=== PATIENT | male | born 1945 | race African-American/Black ===

== ENCOUNTER 2016-12-02 21:29 | Inpatient (IN) | payer OTHER, MEDICARE ==
[~2016-12-02] VITALS: Ht 193 cm; Wt 92.4 kg
[~2016-12-02 21:29] MED LIST: AMLO10 PO; LEVA250T PO; Z.0.UNKNOWN
[2016-12-02 21:38] VITALS: BP 158/77; PULSE 74; RESP 16; TEMP 98.6; O2SAT 97
[2016-12-02] MEDS ORDERED: SODIUM CHLOR 0.9% 1000 ML INJ 1,000 ML IV ONE (21:40)
[2016-12-02] MEDS ORDERED: SODIUM CHLORIDE 0.9% FLUSH 10 ML FLUSH IVF PRN (21:45)
[2016-12-02 21:46] VITALS: BP 158/77; PULSE 74; RESP 18; O2SAT 97
[2016-12-02] MEDS ORDERED: AMLO10TA2 PO (21:46)
[2016-12-02] MEDS ORDERED: TAMS0.4C4 PO (21:46)
--- NOTE | 2016-12-02 21:50 | PD ---
HPI Chief Complaint: ams Time Seen by Provider: 21:50 Travel History International Travel<30 days: No Contact w/Intl Traveler<30days: No Traveled to known affect area: No History of Present Illness HPI 71-year-old male presents to the emergency department by EMS transport from home after roommate reportedly witnessed possible seizure activity around 6:30 PM. Patient reportedly had been napping. EMS was called and upon their arrival patient was combative and agitated possibly postictal. During transit patient's mentation slowly continued to improve. No prior history of seizure disorder. Patient here denies previous seizure disorder or recent injury. Patient has no headache. Patient has history of frequent alcohol use without any alcohol use for the past 2 days. Patient denies previous alcohol withdrawal. Patient denies other complaints other than low back pain which has been present for 3-4 months and is not new. No report of headache visual disturbance difficulty speaking difficulty swallowing weakness of the upper extremities or lower extremities chest pain palpitations shortness of breath abdominal pain nausea vomiting diarrhea or fever. History of hypertension. Blood sugar per paramedics 97. PFSH Past Medical History Narrative Medical Hypertension, prostate surgery, daily alcohol use; nursing notes reviewed Autoimmune Disease: No Blood Disorders: No Cancer: No Cardiovascular Problems: Yes Chemotherapy: No Diminished Hearing: No Endocrine: No Genitourinary: Yes Hypertension: Yes Kidney Stones: No Musculoskeletal: No Neurologic: No Psychiatric: No Reproductive: No Respiratory: No Radiation Therapy: No Renal Failure: No Past Surgical History Abdominal Surgery: No AICD: No Cardiac Surgery: No Ear Surgery: No Endocrine Surgery: No Eye Surgery: No Genitourinary Surgery: Yes Gynecologic Surgery: No Oral Surgery: No Pacemaker: No Thoracic Surgery: No Other Surgery: Yes (PROSTATE) Social History Alcohol Use: Yes (DAILY-BEER) Tobacco Use: No Substance Use: No Allergies-Medications (Allergen,Severity, Reaction): Coded Allergies: No Known Allergies (Verified , 12/02/16) Reported Meds & Prescriptions Reported Meds & Active Scripts Active Reported Tamsulosin (Tamsulosin HCl) 0.4 Mg Cap 0.4 Mg PO HS Amlodipine (Amlodipine Besylate) 10 Mg Tab 10 Mg PO DAILY Review of Systems Except as stated in HPI: all other systems reviewed are Neg General / Constitutional: No: Fever Eyes: No: Visual changes HENT: No: Headaches, Neck Pain Cardiovascular: No: Chest Pain or Discomfort Respiratory: No: Shortness of Breath Gastrointestinal: No: Vomiting, Abdominal Pain Genitourinary: No: Flank Pain Musculoskeletal: Positive: Pain, No: Myalgias, Arthralgias Skin: No Rash Neurologic: Positive: Syncope (possible), Seizures (possible), No: Weakness, Dizziness, Focal Abnormalities, Coordination Problem, Headache Psychiatric: No: Anxiety Hematologic/Lymphatic: No: Lymph Node Enlargement Physical Exam Narrative GENERAL: Well-developed well-nourished male in no acute distress no respiratory distress; GCS 14 SKIN: Warm and dry. HEAD: Atraumatic. Normocephalic. EYES: Pupils equal and round. No scleral icterus. No injection or drainage. ENT: No nasal bleeding or discharge. Mucous membranes pink and moist. NECK: Trachea midline. No JVD. CARDIOVASCULAR: Regular rate and rhythm. RESPIRATORY: No accessory muscle use. Clear to auscultation. Breath sounds equal bilaterally. GASTROINTESTINAL: Abdomen soft, non-tender, nondistended. Hepatic and splenic margins not palpable. MUSCULOSKELETAL: Extremities without clubbing, cyanosis, or edema. No obvious deformities. NEUROLOGICAL: Awake and alert. No obvious cranial nerve deficits. Motor grossly within normal limits. Five out of 5 muscle strength in the arms and legs. No limb ataxia. No pronator drift. Sensory exam grossly intact. Normal speech. PSYCHIATRIC: Appropriate mood and affect; insight and judgment normal. Data Data Last Documented VS Vital Signs Date Time Temp Pulse Resp B/P (MAP) Pulse Ox O2 Delivery O2 Flow Rate FiO2 12/02/16 21:46 74 18 158/77 (104) 97 Room Air 12/02/16 21:38 98.6 Orders Orders Complete Blood Count With Diff (12/02/16 21:40) Alcohol (Ethanol) (12/02/16 21:40) Drug Screen, Random Urine (12/02/16 21:40) Ct Brain W/O Iv Contrast(Rout) (12/02/16 ) Blood Glucose (12/02/16 21:40) Ecg Monitoring (12/02/16 21:40) Iv Access Insert/Monitor (12/02/16 21:40) Oximetry (12/02/16 21:40) Comprehensive Metabolic Panel (12/02/16 21:40) Sodium Chlor 0.9% 1000 Ml Inj (Ns 1000 M (12/02/16 21:40) Sodium Chloride 0.9% Flush (Ns Flush) (12/02/16 21:45) Magnesium (Mg) (12/02/16 21:40) Electrocardiogram (12/02/16 ) Troponin I (12/02/16 21:40) ^ Seizure Precautions (12/02/16 21:50) Admit Order (Ed Use Only) (12/03/16 ) ^ Saline Lock (12/03/16 00:59) Resp Oxygen Keron C Titrat 1-4 L (12/03/16 ) Notify Dr: Other (12/03/16 00:59) Sodium Chloride 0.9% Flush (Ns Flush) (12/03/16 09:00) Sodium Chloride 0.9% Flush (Ns Flush) (12/03/16 01:00) Admit To Inpatient (12/03/16 ) Vital Signs (Adult) Q4H (12/03/16 00:57) Neuro Checks Q4H (12/03/16 00:57) Activity Oob With Assistance (12/03/16 00:57) Valuation Consultant / Telemetry .CONTINUOUS (12/03/16 00:57) Diet Heart Healthy (12/03/16 Breakfast) Sodium Chloride 0.9% Flush (Ns Flush) (12/03/16 01:00) Sodium Chloride 0.9% Flush (Ns Flush) (12/03/16 09:00) Basic Metabolic Panel (Bmp) (12/04/16 06:00) Complete Blood Count With Diff (12/04/16 06:00) Pt Request For Service (12/03/16 00:57) Case Management Consult (12/03/16 00:57) Naloxone Inj (Narcan Inj) (12/03/16 01:00) Inpatient Certification (12/03/16 ) ^ Seizure Precautions (12/03/16 00:57) Lorazepam Inj (Ativan Inj) (12/03/16 01:00) Lorazepam Inj (Ativan Inj) (12/03/16 01:00) Eeg Study (12/03/16 ) Consult Neurology (12/03/16 ) Thiamine (Vit B1) (Vitamin B1) (12/03/16 09:00) Labs Laboratory Tests Test 12/02/16 22:00 White Blood Count 5.8 TH/MM3 Red Blood Count 4.90 MIL/MM3 Hemoglobin 12.2 GM/DL Hematocrit 38.2 % Mean Corpuscular Volume 77.9 FL Mean Corpuscular Hemoglobin 24.9 PG Mean Corpuscular Hemoglobin Concent 32.0 % Red Cell Distribution Width 14.7 % Platelet Count 169 TH/MM3 Mean Platelet Volume 7.1 FL Neutrophils (%) (Auto) 64.9 % Lymphocytes (%) (Auto) 25.3 % Monocytes (%) (Auto) 8.8 % Eosinophils (%) (Auto) 0.6 % Basophils (%) (Auto) 0.4 % Neutrophils # (Auto) 3.8 TH/MM3 Lymphocytes # (Auto) 1.5 TH/MM3 Monocytes # (Auto) 0.5 TH/MM3 Eosinophils # (Auto) 0.0 TH/MM3 Basophils # (Auto) 0.0 TH/MM3 CBC Comment DIFF FINAL Differential Comment Blood Urea Nitrogen 14 MG/DL Creatinine 1.32 MG/DL Random Glucose 86 MG/DL Total Protein 7.8 GM/DL Albumin 3.3 GM/DL Calcium Level 9.0 MG/DL Magnesium Level 2.1 MG/DL Alkaline Phosphatase 85 U/L Aspartate Amino Transf (AST/SGOT) 24 U/L Alanine Aminotransferase (ALT/SGPT) 19 U/L Total Bilirubin 0.5 MG/DL Sodium Level 136 MEQ/L Potassium Level 3.7 MEQ/L Chloride Level 103 MEQ/L Carbon Dioxide Level 20.4 MEQ/L Anion Gap 13 MEQ/L Estimat Glomerular Filtration Rate 65 ML/MIN Troponin I 0.02 NG/ML Ethyl Alcohol Level LESS THAN 3 MG/DL MDM Medical Decision Making Medical Screen Exam Complete: Yes Emergency Medical Condition: Yes Medical Record Reviewed: Yes Interpretation(s) EKG: Normal sinus rhythm rate 65 first grade AV block no acute ST elevation or injury pattern Differential Diagnosis Syncope, seizure, alcohol withdrawal seizure, TIA, CVA, ICH, elect light disturbance, arrhythmia, FL Narrative Course Patient placed on court recording monitor and pulse oximeter; specimens collected and sent for resulting; imaging studies ordered; seizure precautions CT imaging ordered Family members at bedside report sonorous respirations suspect postictal event witnessed seizure activity witnessed; GCS 15 at this time Plan will be to admit for new-onset seizure versus alcohol withdrawal seizure versus syncopal episode Patient's case discussed with on-call medicine physician for observation admission; no recurrent syncope or seizure while in rhe ED Physician Communication Physician Communication discussed with Dr Whitaker Diagnosis Primary Impression: Syncope Qualified Codes: R55 - Syncope and collapse Additional Impression: Alcohol withdrawal seizure Qualified Codes: F10.239 - Alcohol dependence with withdrawal, unspecified; R56.9 - Unspecified convulsions Admitting Information Admitting Physician Requests: Observation Scripts Cyanocobalamin (Vitamin B-12) 1,000 Mcg Subl 1000 MCG SL DAILY for Nutritional Supplement, #30 TAB.SL 0 Refills Prov: Henri Rossi MD 12/04/16 Thiamine HCl (Gnp Vitamin B-1) 100 Mg Tab 100 MG PO DAILY for alcohol, #30 TAB 0 Refills Prov: Henri Rossi MD 12/04/16 Zoe Mark MD Dec 02, 2016 21:50
[2016-12-02 22:20] LABS: AUTOMATED NEUTROPHIL # 3.8 TH/MM3 (1.8-7.7); BASOPHIL % 0.4 % (0.0-2.0); EOSINOPHIL % 0.6 % (0.0-4.0); HEMATOCRIT 38.2 % (39.0-51.0); HEMO FLAGS DIFF FINAL; LYMPH % 25.3 % (9.0-44.0); LYMPHOCYTE # 1.5 TH/MM3 (1.0-4.8); MEAN CELL VOLUME 77.9 FL (80.0-100.0); MEAN CORPUSCULAR HEMOGLOBIN 24.9 PG (27.0-34.0); MONO % 8.8 % (0.0-8.0); NEUT % 64.9 % (16.0-70.0); PLATELET COUNT 169 TH/MM3 (150-450); RED CELL DISTRIBUTION WIDTH 14.7 % (11.6-17.2); WHITE BLOOD COUNT 5.8 TH/MM3 (4.0-11.0)
[2016-12-02 22:31] LABS: ANION GAP 13 MEQ/L (5-15); AST (GOT) 24 U/L (15-37); BICARBONATE 20.4 MEQ/L (21.0-32.0); BLOOD UREA NITROGEN 14 MG/DL (7-18); CHLORIDE 103 MEQ/L (98-107); GLOMERULAR FILTRATION RATE 65 ML/MIN (>89); MAGNESIUM 2.1 MG/DL (1.5-2.5); POTASSIUM 3.7 MEQ/L (3.5-5.1); SODIUM (NA) 136 MEQ/L (136-145)
[2016-12-02 22:32] LABS: ALT (GPT) 19 U/L (12-78)
[2016-12-02 22:36] LABS: ALKALINE PHOSPHATASE 85 U/L (45-117); TOTAL BILIRUBIN ADULT 0.5 MG/DL (0.2-1.0)
[2016-12-02 22:42] LABS: ALCOHOL LESS THAN 3 MG/DL (0-5)
--- NOTE | 2016-12-02 23:37 | RADRPT ---
EXAM DATE/TIME: 12/02/2016 23:10 [facility] COMPARISON: No previous studies available for comparison. INDICATIONS : Altered mental status. RADIATION DOSE: 35.98 CTDIvol (mGy) MEDICAL HISTORY : Cardiovascular disease. Hypertension. SURGICAL HISTORY : None. ENCOUNTER: Initial ACUITY: 1 day PAIN SCALE: 0/10 LOCATION: cranial TECHNIQUE: Multiple contiguous axial images were obtained of the head. Using automated exposure control and adj ustment of the mA and/or kV according to patient size, radiation dose was kept as low as reasonably a chievable to obtain optimal diagnostic quality images. DICOM format image data is available electro nically for review and comparison. FINDINGS: CEREBRUM: The ventricles are normal for age. No evidence of midline shift, mass lesion, hemorrhage or acute in farction. No extra-axial fluid collections are seen. POSTERIOR FOSSA: The cerebellum and brainstem are intact. The 4th ventricle is midline. The cerebellopontine angle i s unremarkable. EXTRACRANIAL: The visualized portion of the orbits is intact. SKULL: The calvaria is intact. No evidence of skull fracture. CONCLUSION: Normal examination. Oscar Contreras MD on December 02, 2016 at 23:34 Board Certified Radiologist. This report was verified electronically.
[2016-12-03] VITALS (11 sets, daily range): BP systolic 143–165; BP diastolic 67–79; PULSE 43–52; RESP 20; TEMP 97–98.7; O2SAT 96–100
[2016-12-03] MEDS ORDERED: SODIUM CHLORIDE 0.9% FLUSH 10 ML FLUSH IVF PRN (01:00)
[2016-12-03] MEDS ORDERED: NALOXONE HCL 0.4 MG/ML AMP IV PUSH PRN (01:00)
[2016-12-03] MEDS ORDERED: SODIUM CHLORIDE 0.9% FLUSH 10 ML FLUSH IV FLUSH PRN (01:00)
[2016-12-03] MEDS ORDERED: LORazepam 2 MG/ML VIAL IV PUSH PRN ×6 (01:00→09:30)
--- NOTE | 2016-12-03 01:25 | HHI.HP ---
[facility] No Primary Care Physician Admission Diagnosis seizure; alcohol withdrawal Diagnoses: Travel History International Travel<30 Days: No Contact w/Intl Traveler <30 Da: No Traveled to Known Affected Are: No History of Present Illness went to bed between 6p,m and 7p.m. nothing particular he remebers before sleeping friend in living room came to see him and he was confused, combative , so called 911 does not remember anything except 6 plp there and scared him no tongue bite no incontinence no prior episodes of syncope or seizures denies every other symptoms such as chest pain/ palpitations/ shortness of breath/ dizziness denies blood in stool or urine denies cough/ fever/ nausea/ vomiting/ diarrhea Review of Systems Except as stated in HPI: all other systems reviewed are Neg Past Family Social History Past Medical History Hypertension BPH Past Surgical History TURP some kind of surgery for gallbladder Reported Medications does not remember meds, pharmacy is [facility] Allergies: Coded Allergies: No Known Allergies (Verified , 12/02/16) Family History does not know for sure Social History Denies smoking cigarettes. Used to drink alcohol, about half a pint a day on a daily basis but this was before he turned 64 yo, about 7 yrs ago. now drinks about only 4 beers a day. Denies any drug abuse. Lives alone, and has this lady friend who lives with him on and off for several years Still drives. Physical Exam Vital Signs Vital Signs Date Time Temp Pulse Resp B/P (MAP) Pulse Ox O2 Delivery O2 Flow Rate FiO2 12/02/16 21:46 74 18 158/77 (104) 97 Room Air 12/02/16 21:38 98.6 74 16 158/77 (104) 97 Physical Exam GENERAL: This is a well-nourished, well-developed patient, in no apparent distress. SKIN: No rashes, ecchymoses or lesions. Cool and dry. HEAD: Atraumatic. Normocephalic. No temporal or scalp tenderness. EYES: No scleral icterus. No injection or drainage. ENT: Nose without bleeding, purulent drainage or septal hematoma. Airway patent. NECK: Trachea midline. No JVD CARDIOVASCULAR: Regular rate and rhythm without murmurs, gallops, or rubs. RESPIRATORY: Clear to auscultation. Breath sounds equal bilaterally. No wheezes , rales, or rhonchi. GASTROINTESTINAL: Abdomen soft, non-tender, nondistended. No guarding. MUSCULOSKELETAL: Extremities without clubbing, cyanosis, or edema. No calf tenderness. NEUROLOGICAL: Awake and alert. Motor and sensory grossly within normal limits. Normal speech. Laboratory Laboratory Tests Test 12/02/16 22:00 White Blood Count 5.8 Red Blood Count 4.90 Hemoglobin 12.2 Hematocrit 38.2 Mean Corpuscular Volume 77.9 Mean Corpuscular Hemoglobin 24.9 Mean Corpuscular Hemoglobin Concent 32.0 Red Cell Distribution Width 14.7 Platelet Count 169 Mean Platelet Volume 7.1 Neutrophils (%) (Auto) 64.9 Lymphocytes (%) (Auto) 25.3 Monocytes (%) (Auto) 8.8 Eosinophils (%) (Auto) 0.6 Basophils (%) (Auto) 0.4 Neutrophils # (Auto) 3.8 Lymphocytes # (Auto) 1.5 Monocytes # (Auto) 0.5 Eosinophils # (Auto) 0.0 Basophils # (Auto) 0.0 CBC Comment DIFF FINAL Differential Comment Blood Urea Nitrogen 14 Creatinine 1.32 Random Glucose 86 Total Protein 7.8 Albumin 3.3 Calcium Level 9.0 Magnesium Level 2.1 Alkaline Phosphatase 85 Aspartate Amino Transf (AST/SGOT) 24 Alanine Aminotransferase (ALT/SGPT) 19 Total Bilirubin 0.5 Sodium Level 136 Potassium Level 3.7 Chloride Level 103 Carbon Dioxide Level 20.4 Anion Gap 13 Estimat Glomerular Filtration Rate 65 Troponin I 0.02 Ethyl Alcohol Level LESS THAN 3 Result Diagram: 12/02/16219912/02/162199 Imaging Last 48 hours Impressions Carotid Artery Ultrasound 12/03/16 0000 Signed Impressions: Service Date/Time: Saturday, December 03, 2016 08:34 - CONCLUSION: [id number] atherosclerotic plaque in both carotid bifurcations. No evidence of hemodynamically significant stenosis. Antegrade flow both vertebral arteries. Felix Moore MD Head CT 12/02/16 0000 Signed Impressions: Service Date/Time: Friday, December 02, 2016 23:10 - CONCLUSION: Normal examination. MD Maximino Roberson VTE Risk Assessment Caprini VTE Risk Assessment: Mod/High Risk (score >= 2) Caprini Risk Assessment Model Point Value = 1 Point Value = 2 Point Value = 3 Point Value = 5 Age 41-60 Minor surgery BMI > 25 kg/m2 Swollen legs Varicose veins or History of unexplained or recurrent spontaneous Oral contraceptives or hormone replacement Sepsis (< 1 month) Serious lung disease, including pneumonia (< 1 month) Abnormal pulmonary function Acute myocardial infarction Congestive heart failure (< 1 month) History of inflammatory bowel disease Medical patient at bed rest Age 61-74 Arthroscopic surgery Major open surgery (> 45 min) Laparoscopic surgery (> 45 min) Malignancy Confined to bed (> 72 hours) Immobilizing plaster cast Central venous access Age >= 75 History of VTE Family history of VTE Factor V Leiden Prothrombin [id number] Lupus anticoagulant Anticardiolipin antibodies Elevated serum homocysteine Heparin-induced thrombocytopenia Other congenital or acquired thrombophilia Stroke (< 1 month) Elective arthroplasty Hip, pelvis, or leg fracture Acute spinal cord injury (< 1 month) Prophylaxis Regimen Total Risk Factor Score Risk Level Prophylaxis Regimen 0-1 Low Early ambulation 2 Moderate Order ONE of the following: *Sequential Compression Device (SCD) *Heparin 5000 units SQ BID 3-4 Higher Order ONE of the following medications: *Heparin 5000 units SQ TID *Enoxaparin/Lovenox 40 mg SQ daily (WT < 150 kg, CrCl > 30 mL/min) *Enoxaparin/Lovenox 30 mg SQ daily (WT < 150 kg, CrCl > 10-29 mL/min) *Enoxaparin/Lovenox 30 mg SQ BID (WT < 150 kg, CrCl > 30 mL/min) AND/OR *Sequential Compression Device (SCD) 5 or more Highest Order ONE of the following medications: *Heparin 5000 units SQ TID (Preferred with Epidurals) *Enoxaparin/Lovenox 40 mg SQ daily (WT < 150 kg, CrCl > 30 mL/min) *Enoxaparin/Lovenox 30 mg SQ daily (WT < 150 kg, CrCl > 10-29 mL/min) *Enoxaparin/Lovenox 30 mg SQ BID (WT < 150 kg, CrCl > 30 mL/min) AND *Sequential Compression Device (SCD) Assessment and Plan Assessment and Plan Impression: etoh withdrawal seizures - though he drinks only 4 beers a day, given his age, likely- plus last drink was on friday possible syncope htn BPH Plan: seizure precautions ativan prn for seizures ativan prn for withdrawal symptoms eeg echo carotid neuro eval resume home meds thiamine DVT prophylaxis with lovenox GI prophylaxis on pantoprazole Discussed Condition With patient, ER MD, nursing staff Physician Certification 2 Midnight Certification Type: Admission for Inpatient Services Order for Inpatient Services The services are ordered in accordance with Medicare regulations or non- Medicare payer requirements, as applicable. In the case of services not specified as inpatient-only, they are appropriately provided as inpatient services in accordance with the 2-midnight benchmark. Estimated LOS (days): 2 days is the estimated time the patient will need to remain in the hospital, assuming treatment plan goals are met and no additional complications. Post-Hospital Plan: Home Jeff Whitaker MD Dec 03, 2016 01:25
[2016-12-03] MEDS: ENALAPRILAT 2.5 MG/2 ML VIAL IV PUSH PRN ×2 (03:03→15:39)
[2016-12-03] MEDS: SODIUM CHLORIDE 0.9% FLUSH 10 ML FLUSH IV FLUSH SCH ×4 (08:29→23:15)
[2016-12-03] MEDS ORDERED: THIAMINE HCL 100 MG TAB PO SCH (09:00)
[2016-12-03] MEDS ORDERED: LORazepam 2 MG TAB PO PRN (09:30)
[2016-12-03] MEDS ORDERED: FLUMAZENIL 0.5 MG/5 ML VIAL IV PUSH PRN (09:30)
[2016-12-03] MEDS ORDERED: LORazepam 1 MG TAB PO PRN (09:30)
--- NOTE | 2016-12-03 10:05 | HHI.PR ---
Subjective Remarks This is a pleasant 71 y/o male who was just admitted through Emergency room due to probable Alcohol withdrawal Seizures at this time seen in his bedroom in the presence of nurse Miss Kenney, no new issues, patient stable continue present care [facility] protocol in chart and follow Electrolytes. he has Hypertension and BPH. Objective Vital Signs Date Time Temp Pulse Resp B/P (MAP) Pulse Ox O2 Delivery O2 Flow Rate FiO2 12/03/16 08:16 44 12/03/16 04:51 98.3 52 20 151/67 (95) 96 12/03/16 02:22 97.0 50 20 165/79 (107) 98 12/03/16 01:55 97 12/02/16 21:46 74 18 158/77 (104) 97 Room Air 12/02/16 21:38 98.6 74 16 158/77 (104) 97 I/O 12/02/16 12/02/16 12/02/16 12/03/16 12/03/16 12/03/16 07:00 15:00 23:00 07:00 15:00 23:00 Intake Total 416 ml Output Total 600 ml 325 ml Balance -184 ml -325 ml Intake IV Total 416 ml Output Urine Total 600 ml 325 ml Result Diagram: 12/02/16219912/02/16 220 Imaging Last Impressions Head CT 12/02/16 0000 Signed Impressions: Service Date/Time: Friday, December 02, 2016 23:10 - CONCLUSION: Normal examination. Oscar Contreras MD Procedures None Other Results Laboratory Tests Test 12/02/16 22:00 White Blood Count 5.8 TH/MM3 Red Blood Count 4.90 MIL/MM3 Hemoglobin 12.2 GM/DL Hematocrit 38.2 % Mean Corpuscular Volume 77.9 FL Mean Corpuscular Hemoglobin 24.9 PG Mean Corpuscular Hemoglobin Concent 32.0 % Red Cell Distribution Width 14.7 % Platelet Count 169 TH/MM3 Mean Platelet Volume 7.1 FL Neutrophils (%) (Auto) 64.9 % Lymphocytes (%) (Auto) 25.3 % Monocytes (%) (Auto) 8.8 % Eosinophils (%) (Auto) 0.6 % Basophils (%) (Auto) 0.4 % Neutrophils # (Auto) 3.8 TH/MM3 Lymphocytes # (Auto) 1.5 TH/MM3 Monocytes # (Auto) 0.5 TH/MM3 Eosinophils # (Auto) 0.0 TH/MM3 Basophils # (Auto) 0.0 TH/MM3 CBC Comment DIFF FINAL Differential Comment Blood Urea Nitrogen 14 MG/DL Creatinine 1.32 MG/DL Random Glucose 86 MG/DL Total Protein 7.8 GM/DL Albumin 3.3 GM/DL Calcium Level 9.0 MG/DL Magnesium Level 2.1 MG/DL Alkaline Phosphatase 85 U/L Aspartate Amino Transf (AST/SGOT) 24 U/L Alanine Aminotransferase (ALT/SGPT) 19 U/L Total Bilirubin 0.5 MG/DL Sodium Level 136 MEQ/L Potassium Level 3.7 MEQ/L Chloride Level 103 MEQ/L Carbon Dioxide Level 20.4 MEQ/L Anion Gap 13 MEQ/L Estimat Glomerular Filtration Rate 65 ML/MIN Troponin I 0.02 NG/ML Ethyl Alcohol Level LESS THAN 3 MG/DL Objective Remarks GENERAL: This is a well-nourished, well-developed patient, in no apparent distress. SKIN: No rashes, ecchymoses or lesions. Cool and dry. HEAD: Atraumatic. Normocephalic. No temporal or scalp tenderness. EYES: No scleral icterus. No injection or drainage. ENT: Nose without bleeding, purulent drainage or septal hematoma. Airway patent. NECK: Trachea midline. No JVD CARDIOVASCULAR: Regular rate and rhythm without murmurs, gallops, or rubs. RESPIRATORY: Clear to auscultation. Breath sounds equal bilaterally. No wheezes , rales, or rhonchi. GASTROINTESTINAL: Abdomen soft, non-tender, nondistended. No guarding. MUSCULOSKELETAL: Extremities without clubbing, cyanosis, or edema. No calf tenderness. NEUROLOGICAL: Awake and alert. Motor and sensory grossly within normal limits. Normal speech. Medications and IVs Current Medications Medications (Trade) Dose Ordered Sig/Cecilia Route Start Time Stop Time Status Last Admin (NS Flush) 2 ml UNSCH PRN IVF 12/02/16 21:45 12/02/16 22:05 (NS Flush) 2 ml BID IV FLUSH 12/03/16 09:00 12/03/16 08:29 (NS Flush) 2 ml UNSCH PRN IVF 12/03/16 01:00 (NS Flush) 2 ml UNSCH PRN IV FLUSH 12/03/16 01:00 (NS Flush) 2 ml BID IV FLUSH 12/03/16 09:00 (Narcan Inj) 0.4 mg UNSCH PRN IV PUSH 12/03/16 01:00 (Ativan Inj) 1 mg Q15M PRN IV PUSH 12/03/16 01:00 (Ativan Inj) 1 mg Q2H PRN IV PUSH 12/03/16 01:00 (Vitamin B1) 100 mg DAILY PO 12/03/16 09:00 12/03/16 08:31 (Vasotec Inj) 2.5 mg Q6H PRN IV PUSH 12/03/16 02:00 12/03/16 03:03 (Norvasc) 10 mg DAILY PO 12/03/16 09:00 12/03/16 08:29 (Flomax) 0.4 mg HS PO 12/03/16 21:00 Multivitamins 10 ml/Folic Acid 1 mg/Sodium Chloride 510.2 ml @ 125 mls/hr Q24H IV 12/03/16 12:00 12/08/16 11:59 Thiamine HCl 100 mg/Sodium Chloride 101 ml @ 100 mls/hr Q24H IV 12/03/16 09:30 12/06/16 09:29 UNV (Vitamin B1) 100 mg DAILY PO 12/07/16 09:00 UNV (Romazicon Inj) 0.2 mg Q1M PRN IV PUSH 12/03/16 09:30 (Ativan) 1 mg Q4H PRN PO 12/03/16 09:30 (Ativan Inj) 1 mg Q4H PRN IV PUSH 12/03/16 09:30 (Ativan) 2 mg Q2H PRN PO 12/03/16 09:30 (Ativan Inj) 2 mg Q2H PRN IV PUSH 12/03/16 09:30 (Ativan Inj) 2 mg Q1H PRN IV PUSH 12/03/16 09:30 (Ativan Inj) 2 mg Q15M PRN IV PUSH 12/03/16 09:30 A/P Assessment and Plan 1. Alcohol withdrawal Seizures, the patient states he had the same situation in the past continue CIWA protocol, Seizure precautions, Cardiac monitoring 2. Hypertension continue Home medicines 3. BPH continue home medicines. DVT prophylaxis Enoxaparin Gastric protection Famotidine Discharge Planning Expected by tomorrow AM if stable. Henri Rossi MD Dec 03, 2016 10:05
--- NOTE | 2016-12-03 10:10 | EKG ---
Date Performed: 12/02/2016 Time Performed: 22:39:01 PTAGE: 71 years EKG: Sinus rhythm WITH FIRST DEGREE AV BLOCK ABNORMAL ECG PREVIOUS TRACING : 09/15/2011 23.06 Compared to prior tracing no significant change DOCTOR: Sanya Foster Interpretating Date/Time 12/03/2016 10:07:32
--- NOTE | 2016-12-03 10:10 | RADRPT ---
EXAM DATE/TIME: 12/03/2016 08:34 [facility] COMPARISON: No previous studies available for comparison. INDICATIONS : Syncope. MEDICAL HISTORY : Hypertension. Seizures. UTI. Asthma. Cholelithiasis. SURGICAL HISTORY : Prostatectomy. ENCOUNTER: Initial ACUITY: 1 day PAIN SCORE: 03/05 LOCATION: Bilateral neck PEAK SYSTOLIC VELOCITIES (cm/sec): ICA/CCA RATIO: Right: 1.1 Left: 1.1 ICA: Right: 106 Left: 102 CCA: Right: 92 Left: 91 ECA: Right: 92 Left: 123 VERTEBRAL: Right: 54 antegrade Left: 95 antegrade Elevated flow velocities and ICA/CCA ratios have been found to correlate with increased degrees of vessel stenosis, calculated as percentage of diameter relative to a normal segment of distal ICA/CCA FINDINGS: Mild to moderate heterogeneous plaque identified in both carotid bifurcations extending into the inte rnal carotid arteries. There is no significant luminal compromise. RIGHT CAROTID: No significant stenosis is visualized. The waveforms are within normal limits. LEFT CAROTID: No significant stenosis is visualized. The waveforms are within normal limits. VERTEBRAL ARTERIES: Antegrade flow is seen in both vertebral arteries. MISCELLANEOUS: None. CONCLUSION: [id number] atherosclerotic plaque in both carotid bifurcations. No evidence of hemodynamically significant stenosis. Antegrade flow both vertebral arteries. Felix Moore MD on December 03, 2016 at 10:07 Board Certified Radiologist. This report was verified electronically.
[2016-12-03] MEDS: ENOXAPARIN SODIUM 40 MG/0.4 ML SYRINGE SQ SCH (10:59)
[2016-12-03] MEDS ORDERED: MULTIVITAMIN INJ 10 ML, FOLIC ACID INJ 1 MG in SODIUM CHLORID 0.9% 500 ML INJ 500 ML IV SCH (12:00)
[2016-12-03 12:40] LABS: HDL CHOLESTEROL 83.8 MG/DL (40.0-60.0)
[2016-12-03 12:43] LABS: BACTERIA, URINE OCC /hpf; BLOOD, URINE TRACE (NEG); COMMENT (UR) CULTURE INDICATED; CULTURE IF INDICATED CULTURE INDICATED; GLUCOSE,URINE NEG (NEG); KETONE, URINE NEG (NEG); NITRITE,URINE NEG (NEG); PH, URINE 6.5 (5.0-8.5); URINE COLOR LIGHT-YELLOW (YELLW/STRAW)
[2016-12-03] MEDS ORDERED: CYANOCOBALAMIN 1000 MCG/ML VIAL IM ONE (15:45)
--- NOTE | 2016-12-03 16:35 | MB ---
cc: EDWIGE YEAGER M.D. DATE OF CONSULTATION 12/03/16 DATE OF 1945 AGE 71 REASON FOR CONSULTATION New seizure, possible ethanol withdrawal. HISTORY OF PRESENT ILLNESS This is a 71-year-old man in his usual state of health when he woke up, went to bed and woke up with a bunch of people standing around him. He was told by a friend that he was making funny noises. was called. They came in. He was confused, combative, does not remember much. He states on average he has about 5 16 ounce light beers a day and a couple shots of anthony but he did not have anything to drink yesterday. There was no tongue biting. No incontinence. He has never had any such event in the past. PAST MEDICAL HISTORY He has a past medical history of BPH, hypertension, TURP, gallbladder surgery. MEDICATIONS home medications he does not have a list of. ALLERGIES NONE REPORTED. SOCIAL HISTORY Does not smoke but he drinks as stated about a five beers a day and two to three shots of anthony. He lives alone. He still drives. No drug abuse. FAMILY HISTORY Noncontributory at this time. PHYSICAL EXAMINATION VITAL SIGNS: On exam his vital temperature 97.9, heart rate has been initially in the 70s but now between 43-52. Blood pressure 158/72 satting at 99% room air. NECK: Neck is supple. HEART: Bradycardic. NEURO: He is awake, alert. He is fluent. Pupils reactive. Visual dykes full. Face symmetrical. Tongue midline. Motor rodríguez does not exhibit any drift ___ or leg lag. No tremors. Nonfocal exam. IMAGING STUDIES He had a CT of the head was unremarkable. Carotid ultrasound showed mild moderate stenosis bilaterally but nothing high grade. LABORATORY DATA Hemoglobin 12.2, his platelets 169,000. Chemistries CO2 was 20.4, creatinine 1.32, GFR 65. Hemoglobin A1c is pending. Ammonia is 15. His B12 211. Albumin 3.3. MCV was 77.9. Urine large leuk esterase, cultures pending. Five white cells. Toxicology was negative. Microbiology still pending. IMPRESSION New-onset seizure likely due to alcohol withdrawal. Recommend continuing with his seizure precautions, the CIWA protocol. Cardiac monitoring, watch his bradycardia. __ GI prophylaxis. His B12 is 211. I will replace it, give him a shot of B12 and then put him on some oral tablets at 1000 micrograms. He is counseled on alcohol. Watch him for seizures, should he have one use Ativan p.r.n. and will likely discharge planning tomorrow. EEG has been completed as well. We will wait for the results. Likely discharge planning tomorrow if stable. Edwige Yeager MD DF/MARA /3:38 PM /4:24 PM
[2016-12-03 17:00] LABS: HEMOGLOBIN A1a 1.2 %; HEMOGLOBIN A1b 1.5 %; HEMOGLOBIN Ao 86.3 %; HEMOGLOBIN LA1C 1.9 %; HEMOGLOBIN P3 3.4 %
[2016-12-03] MEDS ORDERED: THIAMINE INJ 100 MG in SODIUM CHLORIDE 0.9% INJ 100 ML IV SCH (17:00)
--- NOTE | 2016-12-03 19:23 | MG ---
cc: REJI VANCE M.D. Sex: M DATE OF STUDY: 12/03/2016 REQUESTING PHYSICIAN: Dr. Whitaker INTRODUCTION: An EEG was obtained on this 71 year-old patient with history of dizziness, and new onset seizures. The EEG shows 10 per second alpha rhythms posteriorly. There are beta rhythms centrally and frontally. The background is reactive and photic stimulation shows some mild bilateral driving response. Hyperventilation was unremarkable. There is drowsiness later on and awakening towards the end of the recording. INTERPRETATION Normal awake and drowsy EEG. Reji Vance MD [facility] /6:30 PM /7:14 PM
[2016-12-03] MEDS ORDERED: TAMSULOSIN HCL 0.4 MG CAP PO SCH (21:00)
[2016-12-04] VITALS: BP 150/70; PULSE 44; RESP 20; TEMP 98.9; O2SAT 97
[2016-12-04 04:00] VITALS: BP 147/73; PULSE 48; RESP 20; TEMP 97.6; O2SAT 97
[2016-12-04 08:00] VITALS: BP 160/77; PULSE 47; RESP 18; TEMP 98; O2SAT 98
[2016-12-04 08:44] LABS: AUTOMATED NEUTROPHIL # 3.8 TH/MM3 (1.8-7.7); BASOPHIL % 0.5 % (0.0-2.0); EOSINOPHIL % 0.8 % (0.0-4.0); HEMATOCRIT 41.3 % (39.0-51.0); HEMO FLAGS DIFF FINAL; LYMPH % 22.4 % (9.0-44.0); LYMPHOCYTE # 1.3 TH/MM3 (1.0-4.8); MEAN CORPUSCULAR HGB CONC 31.6 % (32.0-36.0); NEUT % 67.3 % (16.0-70.0); PLATELET COUNT 172 TH/MM3 (150-450); RED BLOOD COUNT 5.23 MIL/MM3 (4.50-5.90); RED CELL DISTRIBUTION WIDTH 14.8 % (11.6-17.2); WHITE BLOOD COUNT 5.6 TH/MM3 (4.0-11.0)
[2016-12-04] MEDS ORDERED: NS IV SCH ×2 (09:00)
[2016-12-04] MEDS ORDERED: PANTOPRAZOLE SOD 40 MG DELAYED RELEASE TAB PO SCH (09:00)
[2016-12-04] MEDS ORDERED: THIAMINE IV SCH ×2 (09:00)
[2016-12-04] MEDS: SODIUM CHLORIDE 0.9% FLUSH 10 ML FLUSH IV FLUSH SCH ×2 (09:00→09:28)
--- NOTE | 2016-12-04 09:09 | MB ---
cc: [employer] DATE OF CONSULTATION 12/04/2016 REASON FOR CONSULTATION Bradycardia. HISTORY OF PRESENT ILLNESS The patient is a very pleasant 71-year-old -[place] male with a history of hypertension and benign prostatic hypertrophy who was brought to the hospital after apparent seizure activity. The patient states he was taking a nap and then when he awoke he was unsure of his surroundings, and reportedly he may have been postictal. Here in the hospital monitoring last night revealed episodic bradycardia and pauses up to approximately 3 seconds in duration. The patient denies any recent dizziness, syncope, near-syncope, palpitations, chest pain, shortness of breath, pedal edema, paroxysmal nocturnal dyspnea. For the most part he is very active. PAST MEDICAL HISTORY 1. Hypertension. 2. Benign prostatic hypertrophy. PAST SURGICAL HISTORY Urethral stricture surgeries in 2003 and 2005. CARDIAC MEDICATIONS AT HOME Amlodipine 10 mg daily. ALLERGIES No known drug allergies. FAMILY HISTORY There is no significant family history of cardiac disease. Some members have hypertension and diabetes. SOCIAL HISTORY The patient denies any history of tobacco abuse. He drinks a few beers every day. REVIEW OF SYSTEMS As in the History of Present Illness, otherwise negative or noncontributory. He also denies headache, visual changes, unilateral weakness or numbness, abdominal pain, melena, dyspepsia, bright red blood per rectum. PHYSICAL EXAMINATION VITAL SIGNS: On physical examination his blood pressure is 147/73 with a pulse of 48, respirations of 20. IN GENERAL: He is a well-developed, well-nourished -[place]ic male in no acute distress. NECK/HEENT EXAMINATION: Jugular venous pressure is normal. Carotid pulses are 2+ bilaterally and without bruits. CHEST: Examination of the chest reveals clear lung dykes. CARDIOVASCULAR: On cardiac examination he has a bradycardic, regular rhythm without S3, S4 or murmur. ABDOMEN: On abdominal examination he has a soft, nontender abdomen. Bowel sounds are present. There is no definite hepatosplenomegaly. EXTREMITIES: Examination of the extremities reveals no clubbing, cyanosis or edema. EKG Sinus bradycardia, otherwise normal EKG. LABORATORY DATA WBC 5.8, hemoglobin 12.2, platelets 169, potassium 3.7, BUN 14, creatinine 1.32, total cholesterol 152, LDL 56, HDL 84, triglycerides 63. Troponin 0.02. IMPRESSION Asymptomatic bradycardia in this 71-year-old -[place]ic male with a history of hypertension. His rhythm strips have been reviewed. He does have episodic pauses up to approximately 3 seconds in duration throughout the night. During his pauses, however, he is asleep. The pauses appear to be due to sinus arrest with some due to second-degree AV block, possibly type 2. At this time, while awake, he demonstrates no significant pauses or symptoms. He adamantly denies any history of dizziness, syncope or near-syncope. The patient is on no A-V kaur suppressing drugs. RECOMMENDATIONS Monitor the patient through the day today; if he remains asymptomatic he can be discharged home late this afternoon from a cardiac standpoint. Christian Nicole MD [facility] /8:32 AM /8:52 AM BERENICE
[2016-12-04 09:14] LABS: BICARBONATE 26.5 MEQ/L (21.0-32.0); POTASSIUM 3.7 MEQ/L (3.5-5.1)
--- NOTE | 2016-12-04 09:14 | HHI.PR ---
Subjective Remarks This is a pleasant 71 y/o male who was just admitted through Emergency room due to probable Alcohol withdrawal Seizures at this time seen in his bedroom in the presence of nurse Miss Kenney, no new issues, patient stable continue present care [place] protocol in chart and follow Electrolytes. he has Hypertension and BPH. Seen in his bedroom stable okay from Cardiology and Neurology to go home, stable cardiac rodríguez, he will need to stop drinking alcohol he states he wont stop drinking alcohol. Poor short term prognosis with high risk for falls, Cardiac Toxicity. Neurological toxicity. NO nausea, vomit or diarrhea. Objective Vital Signs Date Time Temp Pulse Resp B/P (MAP) Pulse Ox O2 Delivery O2 Flow Rate FiO2 12/04/16 04:00 97.6 48 20 147/73 (97) 97 12/04/16 00:00 98.9 44 20 150/70 (96) 97 12/03/16 22:34 98 12/03/16 20:00 98.7 48 20 143/68 (93) 99 12/03/16 15:50 98.4 46 20 163/76 (105) 98 12/03/16 14:43 45 12/03/16 13:47 43 12/03/16 11:50 97.9 45 20 158/72 (100) 99 I/O 12/03/16 12/03/16 12/03/16 12/04/16 12/04/16 12/04/16 07:00 15:00 23:00 07:00 15:00 23:00 Intake Total 416 ml 1730.2 ml Output Total 600 ml 625 ml 1 ml Balance -184 ml -625 ml 1730.2 ml -1 ml Intake Oral 1220 ml IV Total 416 ml 510.2 ml Output Urine Total 600 ml 625 ml 1 ml # Voids 4 # Bowel Movements 0 Result Diagram: 12/04/16 0810 12/02/16 2200 Imaging Last Impressions Carotid Artery Ultrasound 12/03/16 0000 Signed Impressions: Service Date/Time: Saturday, December 03, 2016 08:34 - CONCLUSION: [id number] atherosclerotic plaque in both carotid bifurcations. No evidence of hemodynamically significant stenosis. Antegrade flow both vertebral arteries. Felix Moore MD Head CT 12/02/16 0000 Signed Impressions: Service Date/Time: Friday, December 02, 2016 23:10 - CONCLUSION: Normal examination. Oscar Contreras MD Procedures None Other Results Laboratory Tests Test 12/02/16 22:00 12/03/16 11:32 12/03/16 12:13 12/04/16 08:10 Estimat Glomerular Filtration Rate 65 ML/MIN Blood Urea Nitrogen 14 MG/DL Creatinine 1.32 MG/DL Random Glucose 86 MG/DL Total Protein 7.8 GM/DL Albumin 3.3 GM/DL Calcium Level 9.0 MG/DL Magnesium Level 2.1 MG/DL Alkaline Phosphatase 85 U/L Aspartate Amino Transf (AST/SGOT) 24 U/L Alanine Aminotransferase (ALT/SGPT) 19 U/L Total Bilirubin 0.5 MG/DL Sodium Level 136 MEQ/L Potassium Level 3.7 MEQ/L Chloride Level 103 MEQ/L Carbon Dioxide Level 20.4 MEQ/L Troponin I 0.02 NG/ML Ethyl Alcohol Level LESS THAN 3 MG/DL Hemoglobin A1c 5.2 % Ammonia 15 MCMOL/L Triglycerides Level 63 MG/DL Cholesterol Level 152 MG/DL LDL Cholesterol 56 MG/DL HDL Cholesterol 83.8 MG/DL Cholesterol/HDL Ratio 1.81 RATIO Vitamin B12 Level 211 PG/ML Folate 7.2 NG/ML Thyroid Stimulating Hormone 3rd Gen 0.800 uIU/ML Urine Color LIGHT-YELLOW Urine Turbidity CLEAR Urine pH 6.5 Urine Specific [place] 1.009 Urine Protein NEG mg/dL Urine Glucose (UA) NEG mg/dL Urine Ketones NEG mg/dL Urine Occult Blood TRACE Urine Nitrite NEG Urine Bilirubin NEG Urine Urobilinogen LESS THAN 2.0 MG/DL Urine Leukocyte Esterase LARGE Urine RBC 5 /hpf Urine WBC 43 /hpf Urine Bacteria OCC /hpf Microscopic Urinalysis Comment CULTURE INDICATED Urine Opiates Screen NEG Urine Barbiturates Screen NEG Urine Amphetamines Screen NEG Urine Benzodiazepines Screen NEG Urine Cocaine Screen NEG Urine Cannabinoids Screen NEG White Blood Count 5.6 TH/MM3 Red Blood Count 5.23 MIL/MM3 Hemoglobin 13.1 GM/DL Hematocrit 41.3 % Mean Corpuscular Volume 79.0 FL Mean Corpuscular Hemoglobin 25.0 PG Mean Corpuscular Hemoglobin Concent 31.6 % Red Cell Distribution Width 14.8 % Platelet Count 172 TH/MM3 Mean Platelet Volume 7.3 FL Neutrophils (%) (Auto) 67.3 % Lymphocytes (%) (Auto) 22.4 % Monocytes (%) (Auto) 9.0 % Eosinophils (%) (Auto) 0.8 % Basophils (%) (Auto) 0.5 % Neutrophils # (Auto) 3.8 TH/MM3 Lymphocytes # (Auto) 1.3 TH/MM3 Monocytes # (Auto) 0.5 TH/MM3 Eosinophils # (Auto) 0.0 TH/MM3 Basophils # (Auto) 0.0 TH/MM3 CBC Comment DIFF FINAL Differential Comment Objective Remarks GENERAL: This is a well-nourished, well-developed patient, in no apparent distress. SKIN: No rashes, ecchymoses or lesions. Cool and dry. HEAD: Atraumatic. Normocephalic. No temporal or scalp tenderness. EYES: No scleral icterus. No injection or drainage. ENT: Nose without bleeding, purulent drainage or septal hematoma. Airway patent. NECK: Trachea midline. No JVD CARDIOVASCULAR: Regular rate and rhythm without murmurs, gallops, or rubs. RESPIRATORY: Clear to auscultation. Breath sounds equal bilaterally. No wheezes , rales, or rhonchi. GASTROINTESTINAL: Abdomen soft, non-tender, nondistended. No guarding. MUSCULOSKELETAL: Extremities without clubbing, cyanosis, or edema. No calf tenderness. NEUROLOGICAL: Awake and alert. Motor and sensory grossly within normal limits. Normal speech. Medications and IVs Current Medications Medications (Trade) Dose Ordered Sig/Cecilia Route Start Time Stop Time Status Last Admin (NS Flush) 2 ml UNSCH PRN IVF 12/02/16 21:45 12/02/16 22:05 (NS Flush) 2 ml BID IV FLUSH 12/03/16 09:00 12/03/16 23:13 (NS Flush) 2 ml UNSCH PRN IVF 12/03/16 01:00 (NS Flush) 2 ml UNSCH PRN IV FLUSH 12/03/16 01:00 (NS Flush) 2 ml BID IV FLUSH 12/03/16 09:00 12/03/16 23:15 (Narcan Inj) 0.4 mg UNSCH PRN IV PUSH 12/03/16 01:00 (Ativan Inj) 1 mg Q15M PRN IV PUSH 12/03/16 01:00 (Ativan Inj) 1 mg Q2H PRN IV PUSH 12/03/16 01:00 (Vasotec Inj) 2.5 mg Q6H PRN IV PUSH 12/03/16 02:00 12/03/16 15:39 (Norvasc) 10 mg DAILY PO 12/03/16 09:00 12/03/16 08:29 (Flomax) 0.4 mg HS PO 12/03/16 21:00 12/03/16 23:13 Multivitamins 10 ml/Folic Acid 1 mg/Sodium Chloride 510.2 ml @ 125 mls/hr Q24H IV 12/03/16 12:00 12/08/16 11:59 12/03/16 11:57 Thiamine HCl 100 mg/Sodium Chloride 101 ml @ 100 mls/hr Q24H IV 12/03/16 17:00 12/06/16 16:59 12/03/16 19:25 (Romazicon Inj) 0.2 mg Q1M PRN IV PUSH 12/03/16 09:30 (Ativan) 1 mg Q4H PRN PO 12/03/16 09:30 (Ativan Inj) 1 mg Q4H PRN IV PUSH 12/03/16 09:30 (Ativan) 2 mg Q2H PRN PO 12/03/16 09:30 (Ativan Inj) 2 mg Q2H PRN IV PUSH 12/03/16 09:30 (Ativan Inj) 2 mg Q1H PRN IV PUSH 12/03/16 09:30 (Ativan Inj) 2 mg Q15M PRN IV PUSH 12/03/16 09:30 (Lovenox Inj) 40 mg Q24H SQ 12/03/16 11:00 (Vitamin B1) 100 mg DAILY PO 12/07/16 09:00 (Protonix) 40 mg DAILY PO 12/04/16 09:00 A/P Assessment and Plan 1. Alcohol withdrawal Seizures, the patient states he had the same situation in the past continue CIWA protocol, Seizure precautions, Cardiac monitoring, had some Bradycardia asymptomatic seen by data modeling specialist he is now stable but will need to stop drinking alcohol, also as per Neurology specialist EEG within normal limits, discharge home 2. Hypertension continue Home medicines, mild uncontrol will discontinue IV fluids and discharge Home 3. BPH continue home medicines. Discussed with patient in the room and with nurse Nancy, all questions answered to the best of my abilities DVT prophylaxis Enoxaparin Gastric protection Famotidine Discharge Planning Discharge Home Henri Rossi MD Dec 04, 2016 09:14
[2016-12-04] MEDS ORDERED: VITA100021 SL (10:05)
[2016-12-04] MEDS ORDERED: GNP100TA3 PO (10:05)
--- NOTE | 2016-12-04 10:12 | HHI.DS ---
Discharge Summary Admission Date Dec 03, 2016 at 01:01 Discharge Date: Dec 04, 2016 Admitting Diagnosis seizure; alcohol withdrawal (1) Severe alcohol dependence ICD Code: F10.20 - Alcohol dependence, uncomplicated Diagnosis: Principal (2) Withdrawal seizures ICD Code: F19.239 - Other psychoactive substance dependence with withdrawal, unspecified; R56.9 - Unspecified convulsions Diagnosis: Principal Procedures None Brief History - From Admission went to bed between 6p,m and 7p.m. nothing particular he remebers before sleeping friend in living room came to see him and he was confused, combative , so called 911 does not remember anything except 6 plp there and scared him no tongue bite no incontinence no prior episodes of syncope or seizures denies every other symptoms such as chest pain/ palpitations/ shortness of breath/ dizziness denies blood in stool or urine denies cough/ fever/ nausea/ vomiting/ diarrhea CBC/BMP: 12/04/16 0810 12/04/16 0810 Significant Findings Laboratory Tests Test 12/02/16 22:00 12/03/16 11:32 12/03/16 12:13 12/04/16 08:10 Hemoglobin 12.2 GM/DL (13.0-17.0) Hematocrit 38.2 % (39.0-51.0) Mean Corpuscular Volume 77.9 FL (80.0-100.0) 79.0 FL (80.0-100.0) Mean Corpuscular Hemoglobin 24.9 PG (27.0-34.0) 25.0 PG (27.0-34.0) Monocytes (%) (Auto) 8.8 % (0.0-8.0) 9.0 % (0.0-8.0) Creatinine 1.32 MG/DL (0.60-1.30) Albumin 3.3 GM/DL (3.4-5.0) Carbon Dioxide Level 20.4 MEQ/L (21.0-32.0) Estimat Glomerular Filtration Rate 65 ML/MIN (>89) 81 ML/MIN (>89) HDL Cholesterol 83.8 MG/DL (40.0-60.0) Urine Occult Blood TRACE (NEG) Urine Leukocyte Esterase LARGE (NEG) Urine RBC 5 /hpf (0-3) Urine WBC 43 /hpf (0-5) Urine Bacteria OCC /hpf (NONE) Mean Corpuscular Hemoglobin Concent 31.6 % (32.0-36.0) Imaging Last Impressions Carotid Artery Ultrasound 12/03/16 0000 Signed Impressions: Service Date/Time: Saturday, December 03, 2016 08:34 - CONCLUSION: Ssaf-[id number] atherosclerotic plaque in both carotid bifurcations. No evidence of hemodynamically significant stenosis. Antegrade flow both vertebral arteries. Felix Moore MD Head CT 12/02/16 0000 Signed Impressions: Service Date/Time: Friday, December 02, 2016 23:10 - CONCLUSION: Normal examination. Oscar Contreras MD PE at Discharge GENERAL: This is a well-nourished, well-developed patient, in no apparent distress. SKIN: No rashes, ecchymoses or lesions. Cool and dry. HEAD: Atraumatic. Normocephalic. No temporal or scalp tenderness. EYES: No scleral icterus. No injection or drainage. ENT: Nose without bleeding, purulent drainage or septal hematoma. Airway patent. NECK: Trachea midline. No JVD CARDIOVASCULAR: Regular rate and rhythm without murmurs, gallops, or rubs. RESPIRATORY: Clear to auscultation. Breath sounds equal bilaterally. No wheezes , rales, or rhonchi. GASTROINTESTINAL: Abdomen soft, non-tender, nondistended. No guarding. MUSCULOSKELETAL: Extremities without clubbing, cyanosis, or edema. No calf tenderness. NEUROLOGICAL: Awake and alert. Motor and sensory grossly within normal limits. Normal speech. Hospital Course This is a pleasant 71 y/o male who was just admitted through Emergency room due to probable Alcohol withdrawal Seizures at this time seen in his bedroom in the presence of nurse Miss Kenney, no new issues, patient stable continue present care [facility] protocol in chart and follow Electrolytes. he has Hypertension and BPH. Seen in his bedroom stable okay from Cardiology and Neurology to go home, stable cardiac rodríguez, he will need to stop drinking alcohol he states he wont stop drinking alcohol. Poor short term prognosis with high risk for falls, Cardiac Toxicity. Neurological toxicity. NO nausea, vomit or diarrhea. Assessment and Plan 1. Alcohol withdrawal Seizures, the patient states he had the same situation in the past continue CIWA protocol, Seizure precautions, Cardiac monitoring, had some Bradycardia asymptomatic seen by drilling field specialist he is now stable but will need to stop drinking alcohol, also as per Neurology specialist EEG within normal limits, discharge home 2. Hypertension continue Home medicines, mild uncontrol will discontinue IV fluids and discharge Home 3. BPH continue home medicines. Discussed with patient in the room and with nurse Miss Cruz, all questions answered to the best of my abilities DVT prophylaxis Enoxaparin Gastric protection Famotidine Discharge Planning Discharge Home Pt Condition on Discharge: Good Discharge Disposition: Discharge Home Discharge Time: <= 30 minutes Discharge Instructions DIET: Follow Instructions for: Heart Healthy Diet Activities you can perform: Regular-No Restrictions Henri Rossi MD Dec 04, 2016 10:11
[2016-12-04] MEDS: ENOXAPARIN SODIUM 40 MG/0.4 ML SYRINGE SQ SCH (11:00)
--- NOTE | 2016-12-04 17:49 | ECHRPT ---
Indication: SYNCOPE CONCLUSIONS Mildly dilated left ventricle. Mild concentric left ventricular hypertrophy. The left ventricular systolic function is normal with an estimated ejection fraction of 55%. Mild mitral valve regurgitation. Aortic valve sclerosis is present. [id number] aortic valve regurgitation. There is mild to moderate tricuspid valve regurgitation. Normal estimated pulmonary pressures. BP: 151 / 67 HR: Rhythm: Sinus MEASUREMENTS (Male / Female) Normal Values Technical Quality:Fair 2D ECHO LV Diastolic Diameter PLAX 5.7 cm 4.2 - 5.9 / 3.9 - 5.3 cm LV Systolic Diameter PLAX 4.4 cm IVS Diastolic Thickness 1.0 cm 0.6 - 1.0 / 0.6 - 0.9 cm LVPW Diastolic Thickness 1.0 cm 0.6 - 1.0 / 0.6 - 0.9 cm LV Relative Wall Thickness 0.4 LVOT Diameter 2.6 cm Aortic Root Diameter 3.8 cm LA Systolic Diameter LX 3.4 cm 3.0 - 4.0 / 2.7 - 3.8 cm LA Volume Index 36.1 cm/m 16 - 28 cm/m M-MODE AV Cusp Separation MM 2.2 cm DOPPLER AV Peak Velocity 152.0 cm/s AV Peak Gradient 9.2 mmHg AV Mean Gradient 5.0 mmHg AV Velocity Time Integral 30.5 cm AI Peak Velocity 435.5 cm/s AI Peak Gradient 75.9 mmHg AI Pressure Half Time 873.0 ms LVOT Peak Velocity 97.8 cm/s LVOT Peak Gradient 3.8 mmHg LVOT Velocity Time Integral 21.5 cm AV Area Cont Eq vti 3.7 cm AV Area Cont Eq pk 3.4 cm Mitral E Point Velocity 76.5 cm/s Mitral A Point Velocity 56.8 cm/s Mitral E to A Ratio 1.3 LV E' Lateral Velocity 10.2 cm/s Mitral E to LV E' Lateral Ratio 7.5 LV E' Septal Velocity 9.1 cm/s Mitral E to LV E' Septal Ratio 8.4 TR Peak Velocity 267.0 cm/s TR Peak Gradient 28.5 mmHg Right Atrial Pressure 10.0 mmHg Pulmonary Artery Systolic Pressu 38.5 mmHg Right Ventricular Systolic Press 38.5 mmHg PV Peak Velocity 59.4 cm/s PV Peak Gradient 1.4 mmHg FINDINGS LEFT VENTRICLE Mildly dilated left ventricle. Mild concentric left ventricular hypertrophy. The left ventricular systolic function is normal with an estimated ejection fraction of 55%. MITRAL VALVE Mild mitral valve regurgitation. AORTIC VALVE Aortic valve sclerosis is present. [id number] aortic valve regurgitation. TRICUSPID VALVE There is mild to moderate tricuspid valve regurgitation. Normal estimated pulmonary pressures. Royal Payton MD, FACC (Electronically Signed) Final Date:04 December 2016 17:48
--- NOTE | 2016-12-04 23:49 | EKG ---
Date Performed: 12/03/2016 Time Performed: 17:45:58 PTAGE: 71 years EKG: SINUS BRADYCARDIA BORDERLINE LEFT AXIS DEVIATION BORDERLINE ECG PREVIOUS TRACING : 12/02/2016 22.39 Compared to the previous tracing rate has decreased DOCTOR: Kurt Pringle Interpretating Date/Time 12/04/2016 23:49:12
[2016-12-07] MEDS ORDERED: THIAMINE HCL 100 MG TAB PO SCH ×3 (09:00)
== END 2016-12-04 13:20 | disposition home or self-care (01) | DRG 897 ==
LOC: NEPC 21:29 → NEDA 12-03 01:01 → N05B 12-03 02:17
PROVIDERS: ADMIT Internal Medicine; ATTEND Internal Medicine
DX: F10.239 Alcohol dependence with withdrawal, unspecified (principal); R56.9 Unspecified convulsions; I44.1 Atrioventricular block, second degree; R00.1 Bradycardia, unspecified; I10 Essential (primary) hypertension; N40.0 Benign prostatic hyperplasia without lower urinary tract symptoms; M54.5 Low back pain
CPT/HCPCS: 70450; 80048; 80053; 80061; 80307; 81001; 82140; 82607; 82746; 82948; 83036; 83735; 84443; 84484; 85025; 87086; 93005; 93306; 93880; 95819; 96360; 96361; J3411; J3420; J7030; J7040